=== PATIENT | male | born 1950 | race American Indian/Alaskan Native ===

== ENCOUNTER 2024-11-22 23:35 | Inpatient (IN) | payer MEDICARE, BC ==
--- NOTE | 2024-11-23 00:19 | ED ---
General Adult HPI - General Chief complaint: Shortness of Breath Stated complaint: EDUARDO SOB dizzy Time Seen by Provider: 11/22/24 23:47 Source: patient, RN notes reviewed, old records reviewed Mode of arrival: wheelchair Limitations: no limitations - History of Present Illness Initial comments: 74-year-old male presenting for evaluation of and mild cough over the past 3 days. Patient is a current smoker. No history of CHF or COPD. He does report lower extremity swelling. He reports his cough is productive of clear white sputum. No fever. No chest pain. - Related Data Previous Rx's Medication Instructions Recorded Mupirocin Calcium 2% Cream 1 applic TOPICAL TID #30 gm 05/27/15 [Bactroban Cream] Allergies Allergy/AdvReac Type Severity Reaction Status Date / Time No Known Allergies Allergy Verified 11/22/24 23:45 Review of Systems ROS Statement: Those systems with pertinent positive or pertinent negative responses have been documented in the HPI. ROS Other: All systems not noted in ROS Statement are negative. Past Medical History Past Medical History: No Reported History History of Any Multi-Drug Resistant Organisms: None Reported Past Surgical History: Orthopedic Surgery Past Psychological History: No Psychological Hx Reported Smoking Status: Current every day smoker Past Alcohol Use History: None Reported Past Drug Use History: None Reported General Exam Limitations: no limitations General appearance: alert, in no apparent distress Head exam: Present: atraumatic, normocephalic Eye exam: Present: normal appearance, PERRL ENT exam: Present: normal exam Neck exam: Present: normal inspection. Absent: tenderness, meningismus Respiratory exam: Present: rales. Absent: respiratory distress Cardiovascular Exam: Present: regular rate, normal rhythm GI/Abdominal exam: Present: soft. Absent: distended, tenderness Extremities exam: Present: pedal edema Neurological exam: Present: alert, oriented X3, CN II-XII intact. Absent: motor sensory deficit Psychiatric exam: Present: normal affect, normal mood Skin exam: Present: warm, dry, intact. Absent: cyanosis, diaphoretic Course Vital Signs 11/22/24 11/22/24 23:42 23:51 Temperature 97.4 F L Pulse Rate 102 H Respiratory 20 24 Rate Blood Pressure 161/107 O2 Sat by Pulse 93 L Oximetry Medical Decision Making - Medical Decision Making Was pt. sent in by a medical professional or institution (, PA, [employer]DLEWARE DEVELOPER, urgent care, hospital, or [facility]...) When possible be specific @ -No Did you speak to anyone other than the patient for history (EMS, parent, family, police, friend...)? What history was obtained from this source @ -No Did you review nursing and triage notes (agree or disagree)? Why? @ -I reviewed and agree with nursing and triage notes Were old charts reviewed (outside hosp., previous admission, EMS record, old EKG, old radiological studies, urgent care reports/EKG's, [facility] records)? Report findings @ -No old charts were reviewed Differential Dyspnea: Coronary syndrome, arrhythmia, tamponade, asthma, COPD, pulmonary embolism, pn eumonia, pneumothorax, pulmonary effusion, anaphylaxis, diabetic ketoacidosis, flailed chest, pulmonary contusion, diaphragmatic rupture, anemia, neuromuscular, this is not meant to be an all-inclusive list. EKG interpreted by me (3pts min.). @Sinus rhythm rate of 93, [place] interval 196, QRS duration 103, QTc [address] segment elevation subtle ST segment depression in the inferior lateral leads. X-rays interpreted by me (1pt min.). @ -[X-ray showing bilateral pulmonary vascular congestion and trace effusion CT interpreted by me (1pt min.). @ -None done U/S interpreted by me (1pt. min.). @ -None done What testing was considered but not performed or refused? (CT, X-rays, U/S, labs)? Why? @ -None What meds were considered but not given or refused? Why? @ -None Did you discuss the management of the patient with other professionals (professionals i.e. , PA, [employer] DEVELOPER, lab, RT, psych nurse, dialysis social worker, information systems audit manager, teacher, donor relations officer, lead case manager)? Give summary @ -Dr. Gomez Was smoking cessation discussed for >3mins.? @ -No Was critical care preformed (if so, how long)? @ -No Were there social determinants of health that impacted care today? How? (Homelessness, low income, unemployed, alcoholism, drug addiction, transportation, low edu. Level, literacy, decrease access to med. care, group home, rehab)? @ -No Was there de-escalation of care discussed even if they declined (Discuss DNR or withdrawal of care, Hospice)? DNR status @ -No What co-morbidities impacted this encounter? (DM, HTN, Smoking, COPD, CAD, Cancer, CVA, ARF, Chemo, Hep., AIDS, mental health diagnosis, sleep apnea, morbid obesity)? @ -[Current smoker Was patient admitted / discharged? Hospital course, mention meds given and route, prescriptions, significant lab abnormalities, going to OR and other pertinent info. @ -74-year-old male with 3 days of worsening dyspnea and lower extremity edema no prior history of CHF. On exam patient has Rales bilaterally and 1+ pitting edema. Patient is in sinus rhythm. Chest x-ray confirms CHF. Patient has normal laboratory testing with the exception of an elevated BNP at 3300. Patient given IV diuresis. He is admitted with new onset heart failure, echo has been ordered. Undiagnosed new problem with uncertain prognosis? @ -No Drug Therapy requiring intensive monitoring for toxicity (Heparin, Nitro, Insulin, Cardizem)? @ -No Were any procedures done? @ -No Diagnosis/symptom? @ -[New onset congestive heart failure Acute, or Chronic, or Acute on Chronic? @ -Acute Uncomplicated (without systemic symptoms) or Complicated (systemic symptoms)? @ -[default Side effects of treatment? @ -No Exacerbation, Progression, or Severe Exacerbation? @ -No Poses a threat to life or bodily function? How? (Chest pain, USA, PR, pneumonia, PE, COPD, DKA, ARF, appy, cholecystitis, CVA, Diverticulitis, Homicidal, Suicidal, threat to staff... and all critical care pts) @ -No - Lab Data Result diagrams: 11/22/24 23:48 11/22/24 23:48 Lab Results 11/22/24 11/22/24 11/22/24 Range/Units 23:48 23:48 23:48 WBC 8.7 (3.8-10.6) k/uL RBC 4.27 L (4.30-5.90) m/uL Hgb 13.0 (13.0-17.5) gm/dL Hct 40.6 (39.0-53.0) % MCV 95.1 (80.0-100.0) fL MCH 30.6 (25.0-35.0) pg MCHC 32.1 (31.0-37.0) g/dL RDW 14.5 (11.5-15.5) % Plt Count 197 (150-450) k/uL MPV 9.2 Neutrophils % 63 % Lymphocytes % 20 % Monocytes % 8 % Eosinophils % 5 % Basophils % 1 % Neutrophils # 5.5 (1.3-7.7) k/uL Lymphocytes # 1.8 (1.0-4.8) k/uL Monocytes # 0.7 (0-1.0) k/uL Eosinophils # 0.5 (0-0.7) k/uL Basophils # 0.1 (0-0.2) k/uL PT 10.8 (10.0-12.5) sec INR 1.0 (<1.2) APTT 24.3 (22.0-30.0) sec Sodium 138 (137-145) mmol/L Potassium 4.4 (3.5-5.1) mmol/L Chloride 105 (98-107) mmol/L Carbon Dioxide 25 (22-30) mmol/L Anion Gap 8 mmol/L BUN 13 (9-20) mg/dL Creatinine 0.87 (0.66-1.25) mg/dL Est GFR (CKD-EPI)AfAm >90 (>60 ml/min/1.73 sqM) Est GFR (CKD-EPI)NonAf 85 (>60 ml/min/1.73 sqM) Glucose 105 H (74-99) mg/dL Calcium 9.3 (8.4-10.2) mg/dL Magnesium 2.0 (1.6-2.3) mg/dL Total Bilirubin 0.5 (0.2-1.3) mg/dL AST 32 (17-59) U/L ALT 26 (4-49) U/L Alkaline Phosphatase 80 (38-126) U/L Troponin I (0.000-0.034) ng/mL NT-Pro-B Natriuret Pep 3320 pg/mL Total Protein 7.0 (6.3-8.2) g/dL Albumin 4.2 (3.5-5.0) g/dL 11/22/24 Range/Units 23:48 WBC (3.8-10.6) k/uL RBC (4.30-5.90) m/uL Hgb (13.0-17.5) gm/dL Hct (39.0-53.0) % MCV (80.0-100.0) fL MCH (25.0-35.0) pg MCHC (31.0-37.0) g/dL RDW (11.5-15.5) % Plt Count (150-450) k/uL MPV Neutrophils % % Lymphocytes % % Monocytes % % Eosinophils % % Basophils % % Neutrophils # (1.3-7.7) k/uL Lymphocytes # (1.0-4.8) k/uL Monocytes # (0-1.0) k/uL Eosinophils # (0-0.7) k/uL Basophils # (0-0.2) k/uL PT (10.0-12.5) sec INR (<1.2) APTT (22.0-30.0) sec Sodium (137-145) mmol/L Potassium (3.5-5.1) mmol/L Chloride (98-107) mmol/L Carbon Dioxide (22-30) mmol/L Anion Gap mmol/L BUN (9-20) mg/dL Creatinine (0.66-1.25) mg/dL Est GFR (CKD-EPI)AfAm (>60 ml/min/1.73 sqM) Est GFR (CKD-EPI)NonAf (>60 ml/min/1.73 sqM) Glucose (74-99) mg/dL Calcium (8.4-10.2) mg/dL Magnesium (1.6-2.3) mg/dL Total Bilirubin (0.2-1.3) mg/dL AST (17-59) U/L ALT (4-49) U/L Alkaline Phosphatase (38-126) U/L Troponin I <0.012 (0.000-0.034) ng/mL NT-Pro-B Natriuret Pep pg/mL Total Protein (6.3-8.2) g/dL Albumin (3.5-5.0) g/dL Disposition Clinical Impression: Congestive heart failure Disposition: ADMITTED IP TO THIS HOSP Condition: Stable Is patient prescribed a controlled substance at d/c from ED?: No Referrals: None,Stated [Primary Care Provider] - 1-2 days Time of Disposition: 01:23
[2024-11-23 00:23] LABS: Basophils # (A) 0.1 k/uL (0-0.2); Basophils % (A) 1 %; Eosinophils # (A) 0.5 k/uL (0-0.7); Eosinophils % (A) 5 %; HCT 40.6 % (39.0-53.0); Lymphocytes # (A) 1.8 k/uL (1.0-4.8); Lymphocytes % (A) 20 %; MCH 30.6 pg (25.0-35.0); MCHC 32.1 g/dL (31.0-37.0); MCV 95.1 fL (80.0-100.0); Mean Platelet Volume 9.2; Monocytes # (A) 0.7 k/uL (0-1.0); Monocytes % (A) 8 %; Neutrophils # (A) 5.5 k/uL (1.3-7.7); Neutrophils % (A) 63 %; Platelet Count 197 k/uL (150-450); RBC 4.27 m/uL (4.30-5.90); RDW 14.5 % (11.5-15.5); WBC 8.7 k/uL (3.8-10.6)
[2024-11-23 00:31] LABS: Partial Thromboplastin Time 24.3 sec (22.0-30.0); Prothrombin Time 10.8 sec (10.0-12.5)
[2024-11-23 00:39] LABS: ALT 26 U/L (4-49); AST 32 U/L (17-59); African American GFR (CKD) >90 (>60 ml/min/1.73 sqM); Albumin 4.2 g/dL (3.5-5.0); Alkaline Phosphatase 80 U/L (38-126); Anion Gap 8 mmol/L; Blood Urea Nitrogen 13 mg/dL (9-20); Calcium 9.3 mg/dL (8.4-10.2); Carbon Dioxide 25 mmol/L (22-30); Chloride 105 mmol/L (98-107); Glucose 105 mg/dL (74-99); Non-African American GFR(CKD) 85 (>60 ml/min/1.73 sqM); Potassium 4.4 mmol/L (3.5-5.1); Sodium 138 mmol/L (137-145); Total Bilirubin 0.5 mg/dL (0.2-1.3)
[2024-11-23 00:47] LABS: NT-Pro-B-Type Natriuretic Pept 3320 pg/mL
--- NOTE | 2024-11-23 01:15 | XR ---
EXAM: XR Chest, 2 Views CLINICAL HISTORY: ITS.REASON XR Reason: difficulty breathing TECHNIQUE: Frontal and lateral views of the chest. COMPARISON: No relevant prior studies available. FINDINGS: Lungs: See below. Pleural space: Trace RIGHT pleural effusion. Mild pulmonary vascular congestion. Correlate for CHF. No pneumothorax. Heart: Unremarkable. No cardiomegaly. Mediastinum: Unremarkable. Normal mediastinal contour. Bones/joints: Unremarkable. No acute fracture. IMPRESSION: Trace RIGHT pleural effusion. Mild pulmonary vascular congestion. Correlate for CHF.
[2024-11-23] MEDS ORDERED: NALOXONE 0.4 MG/ML 1 ML VIAL IV PRN (01:19)
[2024-11-23] MEDS ORDERED: ACETAMINOPHEN TAB 325 MG TAB PO PRN (01:19)
[2024-11-23 01:27] LABS: Influenza A Not Detected (Not Detectd); Influenza B Not Detected (Not Detectd); RSV Not Detected (Not Detectd)
[2024-11-23] MEDS: FUROSEMIDE 10 MG/ML 4 ML VIAL IV STA (01:54)
--- NOTE | 2024-11-23 03:46 | P.HPIM ---
History of Present Illness H&P Date: 11/23/24 Patient is a 74-year-old male with no significant cardiac or pulmonary history here for shortness of breath. Patient reported that 3 days ago he started to experience nonpleuritic shortness of breath with an associated productive nonbloody cough. He then developed bilateral lower extremity swelling. Persistence of symptoms led him to seek care. He denied chest pain, palpitations, fever, chills, nausea, vomiting, sweats, jaundice, abdominal pain, focal weakness, changes in vision, changes in speech, or recent hospitalization. He traveled via car for 4 hours for a 3 days ago. 2 weeks ago he was also reported that he believed he had a cold. He also reported that he does see a primary care physician for a long time. On admission, chest x-ray showed trace right pleural effusion, mild pulmonary vascular congestion. EKG showed sinus rhythm with a rate of 93 bpm, normal axis, good R wave progression, no ST-T changes, QTc 398 MS. Labs on admission show WBC 8.7, hemoglobin 13, platelet count 1 97,000, PT 10.8, INR 1, PTT 24.3, sodium 138, potassium 4.4, chloride 105, bicarb 25, BUN 13, creatinine 0.87, glucose 105, calcium 9.3, magnesium 2, total bilirubin 0.5, AST 32, ALT 26, alk phos 80, troponin less than 0.0 12, proBNP 3320, total protein 7, albumin 4.2. Cepheid 4 negative. Vitals on admission temperature 97.4 F, pulse rate 102, respiratory rate 20, blood pressure 161/107, O2 saturation 93% on room air ED documentation reviewed. Lasix IV 40 mg given in the ED. Troponins being trended Review of systems: Pertinent positives and negatives as discussed in HPI, a complete review of systems was performed and all other systems are negative. Social history: Tobacco: Active smoker of 40 years. 4-5 sticks per day Alcohol: denies heavy alcohol intake Recreational drugs: denies history of illicit and recreational drug use Travel: Recent travel of 4 hours by a car. Reported that they were able to take a break during this travel. Physical examination: Vital signs reviewed General: non toxic, no distress, appears at stated age Derm: no unusual rashes/lesions, warm Head: atraumatic, normocephalic, symmetric Eyes: EOMI, anicteric sclera, pupils equal round reactive to light ENT: Nose and ears atraumatic Neck: No cervical lymphadenopathy, trachea midline, supple Mouth: no lip lesion, mucus membranes moist Cardiovascular: S1S2 reg, no murmur Lungs: bibasilar crackles, no rhonchi, no rales, no accessory muscle use Abdominal: soft, nondistended, nontender to palpation, no guarding Ext: muscle strength 5 out of 5 in all 4 extremities grossly, no gross muscle atrophy, no contractures, positive dorsalis pedis pulse bilateral, bilateral +2 pitting edema worse on the right than left Neuro: CN II-XI grossly intact, no gross focal neuro deficits Psych: Alert and oriented x 3, appropriate affect and mood Assessment/Plan: 74-year-old male with no known cardiac history here for shortness of breath. Chest x-ray and labs show patient is likely having new onset heart failure #. Acute new onset Congestive Heart Failure -Patient has no known cardiac history -proBNP 3320 -Cardiac monitoring -Supplemental oxygen as needed -Fluid restriction -Strict Is and Os. -Low sodium diet -Obtain Echocardiogram -GDMT: metoprolol succinate 25mg daily, Entresto 24 mg / 26 mg p.o. twice daily, spironolactone 12.5 mg daily, dapagliflozin 10 mg p.o. daily -Lasix 40mg IV q12h -Consult cardiology -Check Lipid panel -Check TSH Chronic Conditions: #. Nicotine use -Patient counseled on smoking cessation and effects on heart failure F: Restrict fluid intake to 2 L/day E: None N:Heart healthy diet with low sodium restriction A: Can self ambulate DVT ppx: Lovenox 40 mg SQ daily Dispo: The patient is admitted with an anticipated greater than 2 midnight stay for evaluation of new onset heart failure CODE STATUS: Full Discussed with: Patient Anticipated discharge place: Home Racheal Leon MD PGY-1 IM Dictation was produced using [employer] dictation software. please excuse any grammatical, word or spelling errors. Past Medical History Past Medical History: No Reported History History of Any Multi-Drug Resistant Organisms: None Reported Past Surgical History: Orthopedic Surgery Past Psychological History: No Psychological Hx Reported Smoking Status: Current every day smoker Past Alcohol Use History: None Reported Past Drug Use History: None Reported Medications and Allergies Home Medications Medication Instructions Recorded Confirmed Type Mupirocin Calcium 2% Cream 1 applic TOPICAL TID #30 gm 05/27/15 Rx [Bactroban Cream] Allergies Allergy/AdvReac Type Severity Reaction Status Date / Time No Known Allergies Allergy Verified 11/22/24 23:45 Physical Exam Vitals: Vital Signs Temp Pulse Resp BP Pulse Ox 11/22/24 23:51 24 11/22/24 23:42 97.4 F L 102 H 20 161/107 93 L Intake and Output 11/22/24 11/22/24 11/23/24 14:59 22:59 06:59 Other: Weight 90.718 kg Results CBC & Chem 7: 11/22/24 23:48 11/22/24 23:48 Labs: Abnormal Lab Results - Last 24 Hours (Table) 11/22/24 11/22/24 Range/Units 23:48 23:48 RBC 4.27 L (4.30-5.90) m/uL Glucose 105 H (74-99) mg/dL
[2024-11-23 07:58] LABS: HCT 42.9 % (39.0-53.0); HGB 13.6 gm/dL (13.0-17.5); MCH 30.3 pg (25.0-35.0); MCHC 31.8 g/dL (31.0-37.0); MCV 95.6 fL (80.0-100.0); Mean Platelet Volume 9.2; Platelet Count 227 k/uL (150-450); RBC 4.49 m/uL (4.30-5.90); RDW 14.5 % (11.5-15.5); WBC 9.6 k/uL (3.8-10.6)
[2024-11-23] MEDS: SACUBITRIL/VALSARTAN 24 MG-26 MG TABLET PO SCH (10:19)
[2024-11-23] MEDS: SPIRONOLACTONE 25 MG TAB PO SCH (10:19)
[2024-11-23] MEDS: METOPROLOL SUCCINATE (ER) 25 MG TAB.ER.24H PO SCH (10:19)
[2024-11-23] MEDS: DAPAGLIFLOZIN PROPANEDIOL 10 MG TABLET PO SCH (10:19)
[2024-11-23] MEDS: FUROSEMIDE 10 MG/ML 4 ML VIAL IV SCH ×2 (10:20→10:27)
[2024-11-23] MEDS: ENOXAPARIN 40 MG/0.4 ML SYRINGE SQ SCH (10:23)
--- NOTE | 2024-11-23 11:10 | P.CRDCN ---
History of Present Illness History of present illness: HISTORY OF PRESENT ILLNESS: This is a 74-year-old male with a past medical history significant for obesity and nicotine dependence. Patient does not follow with a director of logistics. We have be en asked to see the patient in consultation for new onset CHF. Patient examined at the bedside in the emergency room. Patient reports he has been feeling short of breath for the past 3 days. He states prior to this he was not having any shortness of breath. He states that he is getting winded from walking from 1 room to another. He reports he is unable to lay flat in bed due to shortness of breath. Additionally he reports waking up at night short of breath. He reports increased lower extremity edema. Patient also gives additional history that he was sick with a upper respiratory infection about 2 to 3 weeks ago that lasted for about 1 week. He is a current cigarette smoker and smokes half a pack per day. The patient states he does not see a primary care physician regularly. He believes the last time he saw a family physician was about 2 to 3 years ago. DIAGNOSTICS: - EKG reveals sinus mechanism with no signs of acute ischemia. Q waves anteriorly. - Chest xray trace right pleural effusion. Mild pulmonary vascular congestion. Correlate for CHF. - Laboratory data: WBC 9.6. Hemoglobin 13.6. Platelet count 227. Sodium 138. Potassium 4.4. BUN 13. Creatinine 0.87. Magnesium 2.0. Troponin negative x 2. proBNP 3320. - Current home cardiac medications include none. - No previous echocardiogram, stress test, or cardiac catheterization available in EMR for review REVIEW OF SYSTEMS: At the time of my exam: CONSTITUTIONAL: Denies fever or chills. HEENT: Denies blurred vision, vision changes, or eye pain. Denies hemoptysis CARDIOVASCULAR: Denies chest pain. Reports orthopnea. Reports PND. Denies palpitations RESPIRATORY: Ports shortness of breath. GASTROINTESTINAL: Denies abdominal pain. Denies nausea or vomiting. HEMATOLOGIC: Denies bleeding disorders. GENITOURINARY: Denies any blood in urine. SKIN: Denies pruitis. Denies rash. PHYSICAL EXAM: VITAL SIGNS: Reviewed. GENERAL: Well-developed in no acute distress. HEENT: Head is normocephalic. Pupils are equal, round. Sclerae anicteric. Mucous membranes of the mouth are moist. Neck supple. No JVD or thyromegaly LUNGS: Respirations even and unlabored. Lungs with bibasilar crackles, right greater than left HEART: Mildly tachycardic. Regular rate and rhythm. S1 and S2 heard. ABDOMEN: Soft. Nondistended. Nontender. EXTREMITIES: Normal range of motion. No clubbing or cyanosis. Peripheral pulse s intact. Trace bilateral lower extremity edema NEUROLOGIC: Awake and alert. Oriented x 3. ASSESSMENT: Shortness of breath Acute heart failure, type unknown, echo pending Obesity: BMI 31.3 Nicotine dependence, patient reports smoking half a pack per day PLAN: Obtain 2D echo to assess cardiac structure and function Continue IV diuretics for 24 hours. Possible transition to oral diuretics sandee orrow. Daily weights, accurate intake and output, and monitoring of kidney function Patient has been started on Farxiga, metoprolol succinate, Entresto, and Aldactone per primary medicine Continue telemetry monitoring Check lipid panel and hemoglobin A1c Smoking cessation recommended. Patient to be referred to [place] quit line upon discharge. Further recommendations pending patient course Nurse practitioner note has been reviewed by physician. Signing provider agrees with the documented findings, assessment, and plan of care documented by PSYCHIATRY INSTRUCTOR as a scribe. Past Medical History Past Medical History: No Reported History History of Any Multi-Drug Resistant Organisms: None Reported Past Surgical History: Orthopedic Surgery Past Psychological History: No Psychological Hx Reported Smoking Status: Current every day smoker Past Alcohol Use History: None Reported Past Drug Use History: None Reported Medications and Allergies Home Medications Medication Instructions Recorded Confirmed Type No Known Home Medications 11/23/24 11/23/24 History Allergies Allergy/AdvReac Type Severity Reaction Status Date / Time No Known Allergies Allergy Verified 11/23/24 08:52 Physical Exam Vitals: Vital Signs Temp Pulse Resp BP Pulse Ox 11/23/24 06:31 99 18 124/96 94 L 11/23/24 04:05 95 18 121/91 98 11/23/24 01:20 102 H 20 141/101 98 11/22/24 23:51 24 11/22/24 23:42 97.4 F L 102 H 20 161/107 93 L Intake and Output 11/22/24 11/23/24 11/23/24 22:59 06:59 14:59 Other: Weight 90.718 kg Results 11/23/24 07:15 11/22/24 23:48 Cardiac Enzymes 11/22/24 11/22/24 11/23/24 Range/Units 23:48 23:48 07:15 AST 32 (17-59) U/L Troponin I <0.012 <0.012 (0.000-0.034) ng/mL Coagulation 11/22/24 Range/Units 23:48 PT 10.8 (10.0-12.5) sec APTT 24.3 (22.0-30.0) sec CBC 11/22/24 11/23/24 Range/Units 23:48 07:15 WBC 8.7 9.6 (3.8-10.6) k/uL RBC 4.27 L 4.49 (4.30-5.90) m/uL Hgb 13.0 13.6 (13.0-17.5) gm/dL Hct 40.6 42.9 (39.0-53.0) % Plt Count 197 227 (150-450) k/uL Comprehensive Metabolic Panel 11/22/24 Range/Units 23:48 Sodium 138 (137-145) mmol/L Potassium 4.4 (3.5-5.1) mmol/L Chloride 105 (98-107) mmol/L Carbon Dioxide 25 (22-30) mmol/L BUN 13 (9-20) mg/dL Creatinine 0.87 (0.66-1.25) mg/dL Glucose 105 H (74-99) mg/dL Calcium 9.3 (8.4-10.2) mg/dL AST 32 (17-59) U/L ALT 26 (4-49) U/L Alkaline Phosphatase 80 (38-126) U/L Total Protein 7.0 (6.3-8.2) g/dL Albumin 4.2 (3.5-5.0) g/dL Current Medications Generic Name Dose Route Start Last Admin Trade Name Freq PRN Reason Stop Dose Admin Acetaminophen 650 mg 11/23/24 01:19 Acetaminophen Tab 325 Mg Tab PO Q6HR PRN Mild Pain or Fever > 100.5 Dapagliflozin 10 mg 11/23/24 09:00 Dapagliflozin Propanediol 10 Mg Tablet PO DAILY [facility] Enoxaparin Sodium 40 mg 11/23/24 09:00 Enoxaparin 40 Mg/0.4 Ml Syringe SQ DAILY [facility] Furosemide 40 mg 11/23/24 09:00 Furosemide 10 Mg/Ml 4 Ml Vial IV DAILY [facility] Metoprolol Succinate 25 mg 11/23/24 09:00 Metoprolol Succinate (Er) 25 Mg Tab.Er.24h PO DAILY [facility] Naloxone HCl 0.2 mg 11/23/24 01:19 Naloxone 0.4 Mg/Ml 1 Ml Vial IV Q2M PRN Opioid Reversal Sacubitril/Valsartan 1 each 11/23/24 09:00 Sacubitril/Valsartan 24 Mg-26 Mg Tablet PO BID [facility] Spironolactone 12.5 mg 11/23/24 09:00 Spironolactone 25 Mg Tab PO DAILY [facility] Intake and Output 11/22/24 11/23/24 11/23/24 22:59 06:59 14:59 Other: Weight 90.718 kg 11/23/24 07:15 11/22/24 23:48
[2024-11-23 14:23] LABS: LDL Cholesterol,Calculated 107.6 mg/dL (0.0-131.0)
[2024-11-23] MEDS ORDERED: HYDROcodone/APAP 5-325MG 1 EACH TAB PO PRN (17:07)
--- NOTE | 2024-11-23 17:07 | P.PN ---
Subjective Progress Note Date: 11/23/24 74-year-old male with no PMH presents to the ED for shortness of breath. Does not follow a physician. On admission, chest x-ray showed trace right pleural effusion, mild pulmonary vascular congestion. EKG showed sinus rhythm with a rate of 93 bpm, normal axis, good R wave progression, no ST-T changes, QTc 398 MS. Labs on admission show WBC 8.7, hemoglobin 13, platelet count 1 97,000, PT 10.8, INR 1, PTT 24.3, sodium 138, potassium 4.4, chloride 105, bicarb 25, BUN 13, creatinine 0.87, glucose 105, calcium 9.3, magnesium 2, total bilirubin 0.5, AST 32, ALT 26, alk phos 80, troponin less than 0.0 12, proBNP 3320, total protein 7, albumin 4.2. Cepheid 4 negative. Vitals on admission temperature 97. 4 F, pulse rate 102, respiratory rate 20, blood pressure 161/107, O2 saturation 93% on room air. Patient was started on Lasix IV and admitted for further workup and management. 11/23 Patient was seen and examined. Maintained on Lasix 40 mg IV BID. CBC unremarkable. A1c 5.9. Trop < 0.012. Lipid panel T. Chol 173, LDL 107.6. TSH 2.25. General: non toxic, no distress, appears at stated age Derm: warm, dry Head: atraumatic, normocephalic, symmetric Eyes: EOMI, no lid lag, anicteric sclera Mouth: no lip lesion, mucus membranes moist Cardiovascular: S1S2 reg, no murmur Lungs: CTA bilateral, no rhonchi, no rales , no accessory muscle use Ext: no gross muscle atrophy, no edema, no contractures Neuro: no focal neuro deficits Psych: Alert, oriented, appropriate affect Based on my assessment of this patient, this patient meets a high complexity level of care. Acute CHF exacerbation: Unknown EF. Lasix 40 mg IV BID (monitor electrolytes and renal function). Strict intake and outtake. Daily weights. Restart Metoprolol 25 mg PO QD, Entresto 1 tab PO BID, Aldactone 12.5 mg PO QD, Farxiga 10 mg PO QD. 2L fluid restriction. 2g salt restriction. Cardiology on board. Nicotine abuse: Nicotine patch offered. CODE STATUS: FULL CODE DVT Prophylaxis: Lovenox GI Prophylaxis: Designated medical POA if patient is not able to make medical decisions for themselves: I have reviewed the following provider contracting consultant notes: Cardiology I have reviewed the results of the following tests: CBC, A1c. TSH. Lipid panel. I have ordered the following tests: BMP and Mag in the AM. I have discussed the care of this patient with the following independent historian: I have independently interpreted the following test below: I have discussed the management of this patient with the following physician: Objective - Vital Signs Vital signs: Vital Signs Temp 98 F 11/23/24 13:36 Pulse 88 11/23/24 15:51 Resp 20 11/23/24 15:51 BP 105/86 11/23/24 15:51 Pulse Ox 98 11/23/24 15:51 FiO2 Intake & Output 11/22/24 11/23/24 11/23/24 18:59 06:59 18:59 Weight 90.718 kg - Labs CBC & Chem 7: 11/23/24 07:15 11/22/24 23:48 Labs: Abnormal Lab Results - Last 24 Hours (Table) 11/22/24 11/22/24 Range/Units 23:48 23:48 RBC 4.27 L (4.30-5.90) m/uL Glucose 105 H (74-99) mg/dL
[2024-11-23] MEDS: ZOLPIDEM 5 MG TAB PO PRN (20:57)
[2024-11-24 06:47] LABS: African American GFR (CKD) 81 (>60 ml/min/1.73 sqM); Anion Gap 9 mmol/L; Blood Urea Nitrogen 16 mg/dL (9-20); Calcium 9.8 mg/dL (8.4-10.2); Carbon Dioxide 29 mmol/L (22-30); Chloride 101 mmol/L (98-107); Glucose 103 mg/dL (74-99); Non-African American GFR(CKD) 70 (>60 ml/min/1.73 sqM); Potassium 4.8 mmol/L (3.5-5.1); Sodium 139 mmol/L (137-145)
--- NOTE | 2024-11-24 12:20 | CA ---
Transthoracic Echo Report Name: Pérez Pederson Age: 74 Gender: M : 1950 Exam Date: 11/24/2024 08:27 Exam Location: [facility] Ht (in): 67 Wt (lb): 200 Ordering Physician: Johnathon Garcia MD Attending/Referring Phys: [id number], Jose Pattern Painter Jazzmine Arredondo RDCS Procedure CPT: Indications: New onset CHF Cardiac Hx: Technical Quality: Technically difficult study Contrast 1: Definity Total Dose (mL): 2 Contrast 2: Total Dose (mL): MEASUREMENTS (Male / Female) Normal Values 2D ECHO LV Diastolic Diameter PLAX 5.3 cm 4.2 - 5.9 / 3.9 - 5.3 cm LV Systolic Diameter PLAX 4.5 cm IVS Diastolic Thickness 1.2 cm 0.6 - 1.0 / 0.6 - 0.9 cm LVPW Diastolic Thickness 1.2 cm 0.6 - 1.0 / 0.6 - 0.9 cm LV Relative Wall Thickness 0.4 RV Internal Dim ED PLAX 3.9 cm LA Systolic Diameter LX 4.6 cm 3.0 - 4.0 / 2.7 - 3.8 cm LV Diastolic Volume MOD 4C 172.0 cm??? LV Systolic Volume MOD 4C 135.6 cm??? LV Ejection Fraction MOD 4C 21.2 % LV Cardiac Index MOD 4C 1667.7 cm???/min???m??? LV Diastolic Length 4C 9.7 cm LV Systolic Length 4C 8.9 cm LV Diastolic Volume MOD 2C 167.0 cm??? LV Systolic Volume MOD 2C 90.1 cm??? LV Ejection Fraction MOD 2C 46.0 % LV Cardiac Index MOD 2C 3512.6 cm???/min???m??? LV Diastolic Length 2C 9.6 cm LV Systolic Length 2C 8.6 cm M-MODE Aortic Root Diameter MM 4.0 cm DOPPLER AV Peak Velocity 115.1 cm/s AV Peak Gradient 5.3 mmHg MV E' Velocity 5.3 cm/s TR Peak Velocity 245.4 cm/s TR Peak Gradient 24.1 mmHg Right Ventricular Systolic Press 34.1 mmHg FINDINGS Left Ventricle Left ventricular ejection fraction is estimated at 25-30 %. Left ventricular cavity size normal. Mildly increased septal wall thickness. Severely reduced global left ventricular systolic function. Right Ventricle Moderate right ventricular dilatation. Mild pulmonary hypertension. Moderate right ventricular dilatation. Right Atrium Normal right atrial size. No right atrial thrombus or mass seen. Left Atrium Mildly increased left atrial diameter. No left atrial thrombus or mass present. Mitral Valve Structurally normal mitral valve. Mild mitral regurgitation. Aortic Valve Trileaflet aortic valve. Mild aortic regurgitation. Tricuspid Valve Structurally normal tricuspid valve. Mild tricuspid regurgitation. Pulmonic Valve Structurally normal pulmonic valve. Trace pulmonic regurgitation. Pericardium No pericardial effusion. Aorta Mild aortic dilatation at the level of the sinuses of valsalva 40 mm CONCLUSIONS Cardiomyopathy with severe LV systolic dysfunction with an ejection fraction of 25-30% dilated right ventricle Mild mitral aortic and tricuspid regurgitation Mildly dilated aortic root Previewed by: Dr. Perry Mejia MD (Electronically Signed) Final Date: 24 November 2024 12:19
--- NOTE | 2024-11-24 13:43 | P.PN ---
Subjective Progress Note Date: 11/24/24 HISTORY OF PRESENT ILLNESS: This is a 74-year-old male with a past medical history significant for obesity and nicotine dependence. 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 We have been asked to see the patient in consultation for new onset CHF. Patient examined at the bedside in the emergency room. Patient reports he has been feeling short of breath for the past 3 days. He states prior to this he was not having any shortness of breath. He states that he is getting winded from walking from 1 room to another. He reports he is unable to lay flat in bed due to shortness of breath. Additionally he reports waking up at night short of breath. He reports increased lower extremity edema. Patient also gives additional history that he was sick with a upper respiratory infection about 2 to 3 weeks ago that lasted for about 1 week. He is a current cigarette smoker and smokes half a pack per day. The patient states he does not see a primary care physician regularly. He believes the last time he saw a family physician was about 2 to 3 years ago. DIAGNOSTICS: - EKG reveals sinus mechanism with no signs of acute ischemia. Q waves anteriorly. - Chest xray trace right pleural effusion. Mild pulmonary vascular congestion. Correlate for CHF. - Laboratory data: WBC 9.6. Hemoglobin 13.6. Platelet count 227. Sodium 138. Potassium 4.4. BUN 13. Creatinine 0.87. Magnesium 2.0. Troponin negative x 2. proBNP 3320. - Current home cardiac medications include none. - No previous echocardiogram, stress test, or cardiac catheterization available in EMR for review 11/24 Patient seen and examined. Patient denies shortness of breath, no new issues. He is urinating quite a bit and he has less lower extremity edema. He does not have home oxygen. He has been up and walking states he has had no chest pain. Patient is an active smoker. He states he quit alcohol intake 20 years ago. He denies family history of coronary artery disease. Blood pressure 103/73, heart rate 98, pulse ox 95% on 2 L nasal cannula. Echocardiogram reveals EF of 25 to 30% with severe LV systolic dysfunction and cardiomyopathy, mild mitral, aortic and tricuspid regurgitation, mildly dilated aortic root. He denies shortness of breath, no chest pain or pressure. Patient has less LE edema. He states hes is urinating a lot. Patient has been maintained of IV Lasix 40 mg twice daily. Discussed recommendations for cardiac catheterization which we will plan to evaluate in the morning. Patient will be made n.p.o. tonight. A1c 5.9. Triglycerides 116, cholesterol 173, LDL 107, HDL 42. PHYSICAL EXAM: VITAL SIGNS: Reviewed. GENERAL: Well-developed in no acute distress. HEENT: Head is normocephalic. Pupils are equal, round. Sclerae anicteric. Mucous membranes of the mouth are moist. Neck supple. No JVD or thyromegaly LUNGS: Respirations even and unlabored. Lungs with bibasilar crackles, right greater than left HEART: Mildly tachycardic. Regular rate and rhythm. S1 and S2 heard. ABDOMEN: Soft. Nondistended. Nontender. EXTREMITIES: Normal range of motion. No clubbing or cyanosis. Peripheral pulses intact. Trace bilateral lower extremity edema NEUROLOGIC: Awake and alert. Oriented x 3. ASSESSMENT: Shortness of breath Acute systolic heart failure Obesity: BMI 31.3 Nicotine dependence, patient reports smoking half a pack per day Uncontrolled hypertension Cardiomyopathy, ischemic verses nonischemic, EF 25-30% PLAN: Continue IV diuretics for for now Daily weights, accurate intake and output, and monitoring of kidney function Patient has been started on Farxiga, metoprolol succinate, Entresto, and Aldactone per primary medicine Continue telemetry monitoring N.p.o. after midnight for possible cardiac catheterization on Sunday Smoking cessation recommended. Patient to be referred to [place] quit line upon discharge. Further recommendations pending patient course Nurse practitioner note has been reviewed by physician. Signing provider agrees with the documented findings, assessment, and plan of care documented by PRODUCTION ENGINEER as a scribe. Objective - Vital Signs Vital signs: Vital Signs Temp 98.9 F 11/24/24 08:00 Pulse 98 11/24/24 08:00 Resp 16 11/24/24 08:00 BP 103/73 11/24/24 08:00 Pulse Ox 95 11/24/24 08:00 FiO2 Intake & Output 11/23/24 11/24/24 11/24/24 18:59 06:59 18:59 Weight 83.6 kg Other: # Voids 0 - Labs CBC & Chem 7: 11/23/24 07:15 11/24/24 05:31 Labs: Abnormal Lab Results - Last 24 Hours (Table) 11/24/24 Range/Units 05:31 Glucose 103 H (74-99) mg/dL
--- NOTE | 2024-11-24 14:56 | P.PN ---
Subjective Progress Note Date: 11/24/24 74-year-old male with no PMH presents to the ED for shortness of breath. Does not follow a physician. On admission, chest x-ray showed trace right pleural effusion, mild pulmonary vascular congestion. EKG showed sinus rhythm with a rate of 93 bpm, normal axis, good R wave progression, no ST-T changes, QTc 398 MS. Labs on admission show WBC 8.7, hemoglobin 13, platelet count 1 97,000, PT 10.8, INR 1, PTT 24.3, sodium 138, potassium 4.4, chloride 105, bicarb 25, BUN 13, creatinine 0.87, glucose 105, calcium 9.3, magnesium 2, total bilirubin 0.5, AST 32, ALT 26, alk phos 80, troponin less than 0.0 12, proBNP 3320, total protein 7, albumin 4.2. Cepheid 4 negative. Vitals on admission temperature 97. 4 F, pulse rate 102, respiratory rate 20, blood pressure 161/107, O2 saturation 93% on room air. Patient was started on Lasix IV and admitted for further workup and management. 11/23 Patient was seen and examined. Maintained on Lasix 40 mg IV BID. CBC unremarkable. A1c 5.9. Trop < 0.012. Lipid panel T. Chol 173, LDL 107.6. TSH 2.25. 11/24 Patient was seen and examined. Feeling better. BMP glu 103. Mag 2.0. Echo EF 25-30%. Cardio plans on cardiac cath on Sunday. General: non toxic, no distress, appears at stated age Derm: warm, dry Head: atraumatic, normocephalic, symmetric Eyes: EOMI, no lid lag, anicteric sclera Mouth: no lip lesion, mucus membranes moist Cardiovascular: S1S2 reg, no murmur Lungs: CTA bilateral, no rhonchi, no rales , no accessory muscle use Ext: no gross muscle atrophy, no edema, no contractures Neuro: no focal neuro deficits Psych: Alert, oriented, appropriate affect Based on my assessment of this patient, this patient meets a high complexity level of care. Acute CHF exacerbation: Unknown EF. Lasix 40 mg IV BID (monitor electrolytes and renal function). Strict intake and outtake. Daily weights. Metoprolol 25 mg PO QD, Entresto 1 tab PO BID, Aldactone 12.5 mg PO QD, Farxiga 10 mg PO QD. 2L fluid restriction. 2g salt restriction. Cardiology on board. Plans for cardiac cath tomorrow. Nicotine abuse: Nicotine patch offered. CODE STATUS: FULL CODE DVT Prophylaxis: Lovenox GI Prophylaxis: Designated medical POA if patient is not able to make medical decisions for themselves: I have reviewed the following data quality consultant notes: Cardiology I have reviewed the results of the following tests: BMP. Mag. Echo. I have ordered the following tests: BMP and Mag in the AM. I have discussed the care of this patient with the following independent historian: Family at bedside. I have independently interpreted the following test below: I have discussed the management of this patient with the following physician: Objective - Vital Signs Vital signs: Vital Signs Temp 98.9 F 11/24/24 08:00 Pulse 93 11/24/24 12:00 Resp 16 11/24/24 12:00 BP 100/71 11/24/24 12:00 Pulse Ox 96 11/24/24 12:00 FiO2 Intake & Output 11/23/24 11/24/24 11/24/24 18:59 06:59 18:59 Intake Total 118 Balance 118 Weight 83.6 kg Intake: Oral 118 Other: # Voids 0 - Labs CBC & Chem 7: 11/23/24 07:15 11/24/24 05:31 Labs: Abnormal Lab Results - Last 24 Hours (Table) 11/24/24 Range/Units 05:31 Glucose 103 H (74-99) mg/dL
[2024-11-24 17:22] VITALS: BMI 28.8
[2024-11-25] MEDS ORDERED: NITROGLYCERIN SL TABS 0.4 MG TAB SUBLINGUAL PRN (08:14)
[2024-11-25] MEDS ORDERED: ALPRAZolam 0.25 MG TAB PO PRN (08:14)
[2024-11-25] MEDS ORDERED: ALPRAZolam 0.5 MG TAB PO PRN (08:14)
[2024-11-25 09:33] VITALS: RESP 18
--- NOTE | 2024-11-25 13:48 | P.PN ---
Subjective Progress Note Date: 11/25/24 74-year-old male with no PMH presents to the ED for shortness of breath. Does not follow a physician. On admission, chest x-ray showed trace right pleural effusion, mild pulmonary vascular congestion. EKG showed sinus rhythm with a rate of 93 bpm, normal axis, good R wave progression, no ST-T changes, QTc 398 MS. Labs on admission show WBC 8.7, hemoglobin 13, platelet count 1 97,000, PT 10.8, INR 1, PTT 24.3, sodium 138, potassium 4.4, chloride 105, bicarb 25, BUN 13, creatinine 0.87, glucose 105, calcium 9.3, magnesium 2, total bilirubin 0.5, AST 32, ALT 26, alk phos 80, troponin less than 0.0 12, proBNP 3320, total protein 7, albumin 4.2. Cepheid 4 negative. Vitals on admission temperature 97.4 F, pulse rate 102, respiratory rate 20, blood pressure 161/107, O2 saturation 93% on room air. Patient was started on Lasix IV and admitted for further workup and management. 11/23 Patient was seen and examined. Maintained on Lasix 40 mg IV BID. CBC unremarkable. A1c 5.9. Trop < 0.012. Lipid panel T. Chol 173, LDL 107.6. TSH 2.25. 11/24 Patient was seen and examined. Feeling better. BMP glu 103. Mag 2.0. Echo EF 25-30%. Cardio plans on cardiac cath on Sunday. 11/25/2024 patient seen and examined at bedside. No acute events overnight. No new complaints. Sodium 139, potassium 4.8, chloride 101, bicarb 29, BUN 16, creatinine 1.05, glucose 103, calcium 9.8, magnesium 2 Review of systems: Pertinent positives and negatives as discussed in HPI, a complete review of systems was performed and all other systems are negative. Pertinent imaging and labs reviewed. Physical examination: Vital signs reviewed General: non toxic, no distress, appears at stated age Derm: no unusual rashes/lesions, warm Head: atraumatic, normocephalic, symmetric Eyes: EOMI, anicteric sclera, pupils equal round reactive to light ENT: Nose and ears atraumatic Neck: No cervical lymphadenopathy, trachea midline, supple Mouth: no lip lesion, mucus membranes moist Cardiovascular: S1S2 reg, no murmur Lungs: CTA bilateral, no rhonchi, no rales, no accessory muscle use Abdominal: soft, nontender to palpation, no guarding Ext: muscle strength 5 out of 5 in all 4 extremities grossly, no gross muscle atrophy, no contractures, positive dorsalis pedis pulse bilateral, no edema Neuro: CN II-XI grossly intact, no gross focal neuro deficits Psych: Alert and oriented x3, appropriate affect and mood Assessment/Plan: #. Acute CHF exacerbation -EF 25 to 30% on echocardiogram -Continue Lasix 40 mg IV BID -Monitor electrolytes and renal function -Strict intake and output -Daily weights. -Metoprolol 25 mg PO QD, Entresto 1 tab PO BID, Aldactone 12.5 mg PO QD, Farxiga 10 mg PO QD. -2L fluid restriction. 2g salt restriction. -Cardiology on board. Plans for cardiac cath today #. Nicotine abuse Nicotine patch offered. DVT Prophylaxis: Lovenox 40mg SQ daily F: Fluid restriction to 2 L E: Monitor electrolytes particularly sodium and potassium N: Heart healthy diet. N.p.o. before cath A: Can self ambulate CODE STATUS: FULL CODE Racheal Leon MD PGY-1/Master Planner Dictation was produced using MailWriter dictation software. please excuse any grammatical, word or spelling errors. I have seen and evaluated the patient today. Discussed with the resident and agree with the residents finding and plan as documented in the resident's note. Changes highlighted in blue font. Plans for cardiac cath tomorrow. Objective - Vital Signs Vital signs: Vital Signs Temp 98.1 F 11/25/24 03:26 Pulse 91 11/25/24 03:26 Resp 16 11/25/24 03:26 BP 119/81 11/25/24 03:26 Pulse Ox 98 11/25/24 03:26 FiO2 Intake & Output 11/24/24 11/25/24 11/25/24 18:59 06:59 18:59 Intake Total 118 0 Balance 118 0 Weight 83.6 kg 84.7 kg Intake: Oral 118 0 Other: # Voids 0 - Labs CBC & Chem 7: 11/23/24 07:15 11/24/24 05:31
--- NOTE | 2024-11-25 14:19 | P.PN ---
Subjective Progress Note Date: 11/25/24 HISTORY OF PRESENT ILLNESS: This is a 74-year-old male with a past medical history significant for obesity and nicotine dependence. 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 We have been asked to see the patient in consultation for new onset CHF. Patient examined at the bedside in the emergency room. Patient reports he has been feeling short of breath for the past 3 days. He states prior to this he was not having any shortness of breath. He states that he is getting winded from walking from 1 room to another. He reports he is unable to lay flat in bed due to shortness of breath. Additionally he reports waking up at night short of breath. He reports increased lower extremity edema. Patient also gives additional history that he was sick with a upper respiratory infection about 2 to 3 weeks ago that lasted for about 1 week. He is a current cigarette smoker and smokes half a pack per day. The patient states he does not see a primary care physician regularly. He believes the last time he saw a family physician was about 2 to 3 years ago. DIAGNOSTICS: - EKG reveals sinus mechanism with no signs of acute ischemia. Q waves anteriorly. - Chest xray trace right pleural effusion. Mild pulmonary vascular congestion. Correlate for CHF. - Laboratory data: WBC 9.6. Hemoglobin 13.6. Platelet count 227. Sodium 138. Potassium 4.4. BUN 13. Creatinine 0.87. Magnesium 2.0. Troponin negative x 2. proBNP 3320. - Current home cardiac medications include none. - No previous echocardiogram, stress test, or cardiac catheterization available in EMR for review 11/24 Patient seen and examined. Patient denies shortness of breath, no new issues. He is urinating quite a bit and he has less lower extremity edema. He does not have home oxygen. He has been up and walking states he has had no chest pain. Patient is an active smoker. He states he quit alcohol intake 20 years ago. He denies family history of coronary artery disease. Blood pressure 103/73, heart rate 98, pulse ox 95% on 2 L nasal cannula. Echocardiogram reveals EF of 25 to 30% with severe LV systolic dysfunction and cardiomyopathy, mild mitral, aortic and tricuspid regurgitation, mildly dilated aortic root. He denies shortness of breath, no chest pain or pressure. Patient has less LE edema. He states hes is urinating a lot. Patient has been maintained of IV Lasix 40 mg twice daily. Discussed recommendations for cardiac catheterization which we will plan to evaluate in the morning. Patient will be made n.p.o. tonight. A1c 5.9. Triglycerides 116, cholesterol 173, LDL 107, HDL 42. 11/25 Patient seen and examined. Patient states he is feeling better. He states he has been walking and shortness of breath is improved. Blood pressure 95/68, heart rate 85, pulse ox 96% on room air. No repeat blood work today. Review reviewed results of the echocardiogram with the patient and family members at the bedside. Recommend cardiac catheterization and patient is agreeable to move forward with this. PHYSICAL EXAM: VITAL SIGNS: Reviewed. GENERAL: Well-developed in no acute distress. HEENT: Head is normocephalic. Pupils are equal, round. Sclerae anicteric. Mucous membranes of the mouth are moist. Neck supple. No JVD or thyromegaly LUNGS: Respirations even and unlabored. Lungs with bibasilar crackles, right greater than left HEART: Mildly tachycardic. Regular rate and rhythm. S1 and S2 heard. ABDOMEN: Soft. Nondistended. Nontender. EXTREMITIES: Normal range of motion. No clubbing or cyanosis. Peripheral pulses intact. Trace bilateral lower extremity edema NEUROLOGIC: Awake and alert. Oriented x 3. ASSESSMENT: Shortness of breath Acute systolic heart failure Obesity: BMI 31.3 Nicotine dependence, patient reports smoking half a pack per day Uncontrolled hypertension Cardiomyopathy, ischemic verses nonischemic, EF 25-30% PLAN: Continue IV Lasix 40 mg daily Daily weights, accurate intake and output, and monitoring of kidney function Patient has been started on Farxiga, metoprolol succinate, Entresto, and Aldactone per primary medicine Continue telemetry monitoring N.p.o. after midnight for possible cardiac catheterization on Sunday Smoking cessation recommended. Patient to be referred to [place] quit line upon discharge. Further recommendations pending patient course Nurse practitioner note has been reviewed by physician. Signing provider agrees with the documented findings, assessment, and plan of care documented by CONSTRUCTION PROJECT COORDINATOR as a scribe. Objective - Vital Signs Vital signs: Vital Signs Temp 98.6 F 11/25/24 08:00 Pulse 85 11/25/24 08:00 Resp 18 11/25/24 08:00 BP 95/68 11/25/24 08:00 Pulse Ox 96 11/25/24 08:00 FiO2 Intake & Output 11/24/24 11/25/24 11/25/24 18:59 06:59 18:59 Intake Total 118 0 Balance 118 0 Weight 83.6 kg 84.7 kg Intake: Oral 118 0 Other: # Voids 0 - Labs CBC & Chem 7: 11/23/24 07:15 11/24/24 05:31
[2024-11-25 22:06] VITALS: TEMP 97.9
[2024-11-26] MEDS: ASPIRIN 325 MG TAB PO STA ×2 (06:43→06:47)
[2024-11-26] MEDS: ATORVASTATIN 80 MG TAB PO STA ×2 (06:43→06:47)
[2024-11-26 07:22] LABS: African American GFR (CKD) 77 (>60 ml/min/1.73 sqM); Anion Gap 13 mmol/L; Blood Urea Nitrogen 20 mg/dL (9-20); Calcium 9.5 mg/dL (8.4-10.2); Carbon Dioxide 24 mmol/L (22-30); Chloride 102 mmol/L (98-107); Glucose 122 mg/dL (74-99); Magnesium 2.1 mg/dL (1.6-2.3); Non-African American GFR(CKD) 67 (>60 ml/min/1.73 sqM); Potassium 5.2 mmol/L (3.5-5.1); Sodium 139 mmol/L (137-145)
[2024-11-26] MEDS: IV FLUID CONTINUATION 500 ML IV ONE (07:30)
[2024-11-26] MEDS: HEPARIN SODIUM,PORCINE (1 ML) 2,500 UNIT in SODIUM CHLORIDE 0.9% 250 ML IRRIGATION PRN (08:00)
[2024-11-26] MEDS: HEPARIN SODIUM,PORCINE 10,000 UNIT in SODIUM CHLORIDE 0.9% 1,000 ML IRRIGATION PRN (08:00)
[2024-11-26] MEDS: LIDOCAINE 1% INJ 10MG/ML (20 ML MDV) SQ ONE (08:01)
[2024-11-26] MEDS: MIDAZOLAM 2 MG/2 ML VIAL IVP ONE (08:01)
[2024-11-26] MEDS: fentaNYL (PF) 50 MCG/1 ML VIAL IVP ONE (08:01)
[2024-11-26] MEDS: VERAPAMIL SYRINGE (5 MG/10 ML) INTRAARTER ONE (08:03)
[2024-11-26] MEDS: HEPARIN SODIUM 1,000 UN/ML (10ML VL) IVP ONE (08:05)
[2024-11-26] MEDS: IOPAMIDOL-370 100ML BTL INJ ONE (08:14)
[2024-11-26] MEDS ORDERED: RX INFO: IV CONTRAST WAS GIVEN 1 EACH MISC MISCELLANE PRN (08:27)
[2024-11-26] MEDS ORDERED: SODIUM CHLORIDE 0.9% 1,000 ML IV SCH (08:30)
--- NOTE | 2024-11-26 08:33 | P.CARDCATH ---
Date of Procedure: 11/26/24 Description of Procedure: Cardiac Catheterization: The patient is a 74-year-old male who does not follow with a physician and presented with symptoms of progressive dyspnea and evidence of CHF. His echocardiogram showed severe cardiomyopathy with impairment of the systolic function. Recommendations were made regarding cardiac catheterization, the risks and the complications were discussed with the patient who is in full understanding and agreement. Procedure Description: Patient was brought to crime lab analyst in fasting semi-sedated state after receiving Fentanyl and Benadryl achieiving moderate conscious sedated state. Using Xylocaine Anesthesia and modified Seldinger technique, a 6-[place] sheath was i ntroduced in the right radial artery . Subsequently, selective coronary angiography was performed using a 5-[place] 3.5 bend Austin catheter. Multiple views of the coronary artery including hemiaxial views were obtained. The 4 [place] pigtail catheter was used to cross the aortic valve and LVEDP was calculated. Following that, catheter and sheath were removed. Hemostasis was obtained with deployment of vascular band . There was no immediate complication. Patient was returned to room in stable condition. Of note, the patient received a total of 4500 units of intravenous heparin as well as intra-arterial verapamil. Findings: Left main: This is a large size vessel, bifurcating into LAD and left circumflex, the left main has no obstructive disease LAD: This is a large size vessel, reaching to the apex, giving rise to a large diagonal branch proximally. The LAD is mildly calcified and has a 10 to 20% stenosis in the midsegment, the rest of the vessel has no high-grade stenosis Left circumflex: This is a large nondominant vessel giving rise to 3 obtuse marginal branch. The left circumflex has mild intimal disease in the midsegment of 10 to 20% with no high-grade stenosis RCA: This is a large dominant vessel, bifurcating to PDA and PLV. The mid right coronary artery has minimal intimal disease with no evidence of high-grade stenosis. Left Ventriculogram: Not performed Hemodynamics: There was no gradient across aortic valve, LVEDP was 6 to 8 mmHg Conclusion: 1. Mild triple-vessel intimal disease 2. Right dominance 3. Low LVEDP Recommendations: I have recommended to maximize treatment for nonischemic cardiomyopathy, the duration of his cardiomyopathy is unknown. The findings and the recommendations were discussed with the patient and the family and they were in full understanding and agreement. Duration of sedation is 14 minutes.
[2024-11-26] MEDS ORDERED: FUROSEMIDE 10 MG/ML 4 ML VIAL IV SCH (09:00)
[2024-11-26 12:36] VITALS: BP 98/65; PULSE 90
--- NOTE | 2024-11-26 15:10 | P.DS ---
Providers Date of admission: 11/23/24 01:19 Expected date of discharge: 11/26/24 Attending physician: Rod Gomez MD Consults: 11/23/24 01:19 Consult Physician Routine Consulting Provider: Ana Mcdonald Consult Reason/Comments: New onset CHF Do you want consulting provider notified?: Yes Primary care physician: Stated None Hospital Course: Hospital Course: 74-year-old male with no PMH presents to the ED for shortness of breath. Does not follow a physician. On admission, chest x-ray showed trace right pleural effusion, mild pulmonary vascular congestion. EKG showed sinus rhythm with a rate of 93 bpm, normal axis, good R wave progression, no ST-T changes, QTc 398 MS. Labs on admission show WBC 8.7, hemoglobin 13, platelet count 1 97,000, PT 10.8, INR 1, PTT 24.3, sodium 138, potassium 4.4, chloride 105, bicarb 25, BUN 13, creatinine 0.87, glucose 105, calcium 9.3, magnesium 2, total bilirubin 0.5, AST 32, ALT 26, alk phos 80, troponin less than 0.0 12, proBNP 3320, total protein 7, albumin 4.2. Cepheid 4 negative. Vitals on admission temperature 97.4 F, pulse rate 102, respiratory rate 20, blood pressure 161/107, O2 saturation 93% on room air. Patient was admitted for evaluation of new onset congestive heart failure. Lasix 40 mg IV initiated, strict MARGARET intake, daily weights, fluid restriction, salt restriction, echo ordered, and cardiology consulted. Echocardiogram showed 25 to 30% EF. Cardiac catheterization recommended. Found to have mild triple- vessel intimal disease. Patient symptoms improved throughout hospital stay. No new complications occurred. Patient is cleared for discharge today. ASA and Lipitor initiated. GDMT consisting of Aldactone, metoprolol succinate, Entresto, and Farxiga initiated on discharge. Patient advised to follow-up with bone crusher in 1 week and PCP in 1 week on outpatient basis. Final Diagnosis: #. New onset heart failure with reduced ejection fraction, with exacerbation #. Nonischemic cardiomyopathy #. Nonobstructive CAD #. Nicotine dependence #. Mild hyperkalemia Physical examination: Vital signs reviewed General: non toxic, no distress Derm: no unusual rashes/lesions, warm Head: atraumatic, normocephalic, symmetric Eyes: EOMI, anicteric sclera, pupils equal round reactive to light ENT: Nose and ears atraumatic Neck: No cervical lymphadenopathy, trachea midline, supple Mouth: no lip lesion, mucus membranes moist Cardiovascular: S1S2 reg, no murmur Lungs: CTA bilateral, no rhonchi, no rales, no accessory muscle use Abdominal: soft, nondistended, nontender to palpation, no guarding Ext: muscle strength 5 out of 5 in all 4 extremities grossly, no gross muscle atrophy, no contractures, positive dorsalis pedis pulse bilateral, no edema Neuro: CN II-XI grossly intact, no gross focal neuro deficits Psych: Alert, oriented, appropriate affect and mood A total of 36 minutes of time were spent preparing this complex discharge summary. Patient was discharged on 11/26/2024 at 1300. I have seen and evaluated the patient today. Discussed with the resident and agree with the residents finding and plan as documented in the resident's note. Changes highlighted in blue font. Patient Condition at Discharge: Stable Plan - Discharge Summary New Discharge Prescriptions: New Spironolactone [Aldactone] 12.5 mg PO DAILY #90 tab Aspirin 81 mg PO DAILY #90 tab Atorvastatin [Lipitor] 40 mg PO HS #90 tab Metoprolol Succinate (ER) [Toprol XL] 25 mg PO DAILY #90 tab Sacubitril/Valsartan [Entresto 24 mg-26 mg Tablet] 1 each PO BID #120 tab Dapagliflozin Propanediol [Farxiga] 10 mg PO DAILY #90 tab Discharge Medication List Aspirin 81 mg PO DAILY #90 tab 11/26/24 [Rx] Atorvastatin [Lipitor] 40 mg PO HS #90 tab 11/26/24 [Rx] Dapagliflozin Propanediol [Farxiga] 10 mg PO DAILY #90 tab 11/26/24 [Rx] Metoprolol Succinate (ER) [Toprol XL] 25 mg PO DAILY #90 tab 11/26/24 [Rx] Sacubitril/Valsartan [Entresto 24 mg-26 mg Tablet] 1 each PO BID #120 tab 11/26/24 [Rx] Spironolactone [Aldactone] 12.5 mg PO DAILY #90 tab 11/26/24 [Rx] Follow up Appointment(s)/Referral(s): Ana Mcdonald MD [STAFF PHYSICIAN] - 1 Week (office will call you with follow up appointment date. ) Jerry Spears DO [Doctor of Osteopathic Medicine] - 12/02/24 9:20 am Ambulatory/Diagnostic Orders: Basic Metabolic Panel [LAB.AMB] Time Frame: 1 Week, Location: None Selected Magnesium [LAB.AMB] Time Frame: 1 Week, Location: None Selected Patient Instructions/Handouts: Heart Failure (DC), After Radial Heart Catheterization (GEN) Activity/Diet/Wound Care/Special Instructions: Please see cardiology and PCP. Labs in 1 week. Discharge/Stand Alone Forms: Who Do I Call? Discharge Disposition: HOME SELF-CARE
--- NOTE | 2024-11-26 15:14 | P.PN ---
Subjective Progress Note Date: 11/26/24 HISTORY OF PRESENT ILLNESS: This is a 74-year-old male with a past medical history significant for obesity and nicotine dependence. Patient does not follow with a security [employer] [facility]. We have been asked to see the patient in consultation for new onset CHF. Patient examined at the bedside in the emergency room. Patient reports he has been feeling short of breath for the past 3 days. He states prior to this he was not having any shortness of breath. He states that he is getting winded from walking from 1 room to another. He reports he is unable to lay flat in bed due to shortness of breath. Additionally he reports waking up at night short of breath. He reports increased lower extremity edema. Patient also gives additional history that he was sick with a upper respiratory infection about 2 to 3 weeks ago that lasted for about 1 week. He is a current cigarette smoker and smokes half a pack per day. The patient states he does not see a primary care physician regularly. He believes the last time he saw a family physician was about 2 to 3 years ago. DIAGNOSTICS: - EKG reveals sinus mechanism with no signs of acute ischemia. Q waves anteriorly. - Chest xray trace right pleural effusion. Mild pulmonary vascular congestion. Correlate for CHF. - Laboratory data: WBC 9.6. Hemoglobin 13.6. Platelet count 227. Sodium 138. Potassium 4.4. BUN 13. Creatinine 0.87. Magnesium 2.0. Troponin negative x 2. proBNP 3320. - Current home cardiac medications include none. - No previous echocardiogram, stress test, or cardiac catheterization available in EMR for review 11/24 Patient seen and examined. Patient denies shortness of breath, no new issues. He is urinating quite a bit and he has less lower extremity edema. He does not have home oxygen. He has been up and walking states he has had no chest pain. Patient is an active smoker. He states he quit alcohol intake 20 years ago. He denies family history of coronary artery disease. Blood pressure 103/73, heart rate 98, pulse ox 95% on 2 L nasal cannula. Echocardiogram reveals EF of 25 to 30% with severe LV systolic dysfunction and cardiomyopathy, mild mitral, aortic and tricuspid regurgitation, mildly dilated aortic root. He denies shortness of breath, no chest pain or pressure. Patient has less LE edema. He states hes is urinating a lot. Patient has been maintained of IV Lasix 40 mg twice daily. Discussed recommendations for cardiac catheterization which we will plan to evaluate in the morning. Patient will be made n.p.o. tonight. A1c 5.9. Triglycerides 116, cholesterol 173, LDL 107, HDL 42. 11/25 Patient seen and examined. Patient states he is feeling better. He states he has been walking and shortness of breath is improved. Blood pressure 95/68, heart rate 85, pulse ox 96% on room air. No repeat blood work today. Review reviewed results of the echocardiogram with the patient and family members at the bedside. Recommend cardiac catheterization and patient is agreeable to move forward with this. 11/26 Patient seen and examined. Patient states that he is not urinating as much but is now off IV Lasix. This morning, patient underwent cardiac catheterization with Dr. Mcdonald which revealed mild triple-vessel intimal disease, right dominance, low LVEDP with recommendations to maximize treatment for nonischemic cardiomyopathy. Blood pressure 98/65, heart rate 90, pulse ox 92% on room air. Repeat blood work reveals potassium 5.2, creatinine 1.09. Dr. Michaels reviewed catheterization and echocardiogram results with the patient and the importance of no added salt diet, avoidance of alcohol use, smoking cessation and taking all of his medications as directed. PHYSICAL EXAM: VITAL SIGNS: Reviewed. GENERAL: Well-developed in no acute distress. HEENT: Head is normocephalic. Pupils are equal, round. Sclerae anicteric. Mucous membranes of the mouth are moist. Neck supple. No JVD or thyromegaly LUNGS: Respirations even and unlabored. Lungs with bibasilar crackles, right greater than left HEART: Mildly tachycardic. Regular rate and rhythm. S1 and S2 heard. ABDOMEN: Soft. Nondistended. Nontender. EXTREMITIES: Normal range of motion. No clubbing or cyanosis. Peripheral pulse s intact. Trace bilateral lower extremity edema NEUROLOGIC: Awake and alert. Oriented x 3. ASSESSMENT: Shortness of breath Acute systolic heart failure Obesity: BMI 31.3 Nicotine dependence, patient reports smoking half a pack per day Uncontrolled hypertension Cardiomyopathy, nonischemic, EF 25-30% PLAN: Continue current cardiac medications: Aldactone 12.5 mg daily, aspirin 81 mg daily, atorvastatin 40 mg at bedtime, Toprol-XL 25 mg daily, Entresto 24-26 mg twice daily, Farxiga 10 mg daily Alcohol cessation Smoking cessation recommended. Patient to be referred to [place] quit line upon discharge. Patient is cleared for discharge from cardiology and will follow-up in the office with Dr. Mcdonald in 1 to 2 weeks. Patient to have repeat blood work done in 1 week. Nurse practitioner note has been reviewed by physician. Signing provider agrees with the documented findings, assessment, and plan of care documented by PRIMARY CARE NURSE PRACTITIONER as a scribe. Objective - Vital Signs Vital signs: Vital Signs Temp 97.9 F 11/25/24 21:00 Pulse 90 11/26/24 12:36 Resp 18 11/26/24 04:40 BP 98/65 11/26/24 12:36 Pulse Ox 92 L 11/26/24 12:36 FiO2 Intake & Output 11/25/24 11/26/24 11/26/24 18:59 06:59 18:59 Intake Total 540 505 Balance 540 505 Weight 81.1 kg Intake: IV 145 Oral 540 360 Other: # Voids 4 - Labs CBC & Chem 7: 11/23/24 07:15 11/26/24 05:54 Labs: Abnormal Lab Results - Last 24 Hours (Table) 11/26/24 Range/Units 05:54 Potassium 5.2 H (3.5-5.1) mmol/L Glucose 122 H (74-99) mg/dL
[2024-11-26] MEDS ORDERED: ATORVASTATIN 40 MG TAB PO SCH (21:00)
[2024-11-27] MEDS ORDERED: ASPIRIN 81 MG PO SCH (09:00)
== END 2024-11-26 14:58 | disposition home or self-care (01) | DRG 286 ==
LOC: EC 23:35 → 3SCARD 11-23 01:19 → OBSVTOIN 11-23 01:19 → 3SCARD 11-23 19:45
PROVIDERS: ADMIT Internal Medicine; ATTEND Internal Medicine
PROC: B2161ZZ Fluoroscopy of Right and Left Heart using Low Osmolar Contrast (ICD-10-PCS; 2024-11-26)
PROC: 4A023N7 Measurement of Cardiac Sampling and Pressure, Left Heart, Percutaneous Approach (ICD-10-PCS; principal; 2024-11-26 07:30)
DX: I11.0 Hypertensive heart disease with heart failure (principal); I50.21 Acute systolic (congestive) heart failure; I42.8 Other cardiomyopathies; E66.9 Obesity, unspecified; I08.1 Rheumatic disorders of both mitral and tricuspid valves; Z11.52 Encounter for screening for COVID-19; I25.10 Atherosclerotic heart disease of native coronary artery without angina pectoris; Z68.31 Body mass index [BMI] 31.0-31.9, adult; F17.210 Nicotine dependence, cigarettes, uncomplicated; I25.5 Ischemic cardiomyopathy; E87.5 Hyperkalemia
CPT/HCPCS: 36415; 71046; 80048; 80053; 80061; 83036; 83735; 83880; 84443; 84484; 85025; 85027; 85610; 85730; 87636; 93005; 93306; 93458; 96372; 96374; 96376; 99285